=== PATIENT | female | born 1965 | race Caucasian/White ===

== ENCOUNTER → 2023-05-09 | Outpatient (CLI) | payer OTHER ==
[2023-05-09 18:12] LABS: BASOPHILS ABSOLUTE AUTO 0.01 K/mm3 (0.00-0.23); BASOPHILS PERCENT AUTO 0 % (0-2); EOSINOPHILS ABSOLUTE AUTO 0.15 K/mm3 (0.00-0.68); EOSINOPHILS PERCENT AUTO 3 % (0-6); Hematocrit 36.3 % (33.0-51.0); Hemoglobin 12.4 g/dL (11.5-16.0); IMMATURE GRAN ABSOLUTE AUTO 0.01 K/mm3 (0.00-0.10); IMMATURE GRAN PERCENT AUTO 0 % (0-1); LYMPHOCYTES ABSOLUTE AUTO 1.85 K/mm3 (0.84-5.20); LYMPHOCYTES PERCENT AUTO 38 % (21-46); MONOCYTES ABSOLUTE AUTO 0.58 K/mm3 (0.16-1.47); MONOCYTES PERCENT AUTO 12 % (4-13); Mean Corpuscular HGB 36.3 pg (26.0-34.0); Mean Corpuscular HGB Conc 34.2 g/dL (31.5-36.5); Mean Corpuscular Volume 106 fL (80-100); Mean Platelet Volume 11.1 fL (9.1-12.4); NEUTROPHILS ABSOLUTE AUTO 2.33 K/mm3 (1.96-9.15); NEUTROPHILS PERCENT AUTO 47 % (41-73); Platelet Count 146 K/mm3 (150-400); RDW Coefficient Variation 15.1 % (11.7-14.2); RDW Standard Deviation 59.2 fL (35.1-46.3); RETICULOCYTE ABSOLUTE 0.0769 M/mm3 (0.0200-0.1100); RETICULOCYTE COUNT PERCENT 2.25 % (0.50-2.50); Red Blood Cell Count 3.42 M/mm3 (3.80-5.20); White Blood Cell Count 4.93 K/mm3 (4.00-11.30)
[2023-05-09 18:57] LABS: Percent Saturation 82.7 % (15.0-50.0)
== END ==
LOC: LAB SHORT 14:00 → LAB 14:00
PROVIDERS: Internal Medicine Hematology & Oncology
DX: E83.119 Hemochromatosis, unspecified (principal); D59.9 Acquired hemolytic anemia, unspecified
CPT/HCPCS: 82728; 83540; 83550; 85025; 85045

== ENCOUNTER → 2023-06-29 | Outpatient (CLI) | payer OTHER ==
[2023-06-29 18:32] LABS: Albumin, Blood 2.6 g/dL (3.4-5.0); Albumin/Globulin Ratio 0.5 (0.8-1.8); Bilirubin, Direct 1.1 mg/dL (0.0-0.3); Bilirubin, Indirect 1.1 mg/dL (0.1-0.7); Bilirubin, Total 2.2 mg/dL (0.1-1.0); Bun/Creatinine Ratio 29.5 (12.0-20.0); Calcium, Blood 8.7 mg/dL (8.5-10.1); Creatinine, Blood 0.75 mg/dL (0.40-1.00); Globulin, Blood 4.8 g/dL (2.2-4.0); Potassium, Blood 3.9 mmol/L (3.5-5.5); Total Protein, Blood 7.4 g/dL (6.4-8.2)
== END ==
LOC: LAB 17:14 → LAB SHORT 17:14
PROVIDERS: Internal Medicine Hematology & Oncology
DX: D59.10 Autoimmune hemolytic anemia, unspecified (principal); D89.2 Hypergammaglobulinemia, unspecified; E80.6 Other disorders of bilirubin metabolism; E83.119 Hemochromatosis, unspecified
CPT/HCPCS: 80053; 80076; 82248; 84100

== ENCOUNTER → 2023-07-06 | Outpatient (CLI) | payer OTHER ==
[2023-07-06 18:31] LABS: IMMATURE RETIC FRACTION 18.5 % (2.3-16.0); RETIC HGB EQUIVALENT 39.9 pg (28.20-36.60); RETICULOCYTE ABSOLUTE 0.0718 M/mm3 (0.0200-0.1100); RETICULOCYTE COUNT PERCENT 2.05 % (0.50-2.50)
== END ==
LOC: LAB SHORT 16:48 → LAB 16:48
PROVIDERS: Internal Medicine Hematology & Oncology
DX: D59.10 Autoimmune hemolytic anemia, unspecified (principal)
CPT/HCPCS: 85045

== ENCOUNTER 2023-09-12 08:54 | Day surgery (SDC) | payer OTHER ==
[2023-09-12] VITALS (18 sets, daily range): BP systolic 107–139; BP diastolic 57–92
[~2023-09-12] VITALS: Ht 172.7 cm; Wt 107.3 kg
--- NOTE | 2023-09-12 09:40 | NUR ---
Ambulatory in Day Surgery. History, Chart, Medications and Allergies reviewed before start of procedure. Lungs clear T/O to Auscultation. Patient confirms NPO status and agrees with scheduled surgery. Pre-Op teaching done. Pt verbalizes understanding. Patient States Post-Procedure ride home has been arranged.
--- NOTE | 2023-09-12 10:06 | NUR ---
09/12/23 1006 Chantell Rinaldi HISTORY, CHART, MEDICATIONS AND ALLERGIES REVIEWED BEFORE START OF PROCEDURE. PATIENT CONFIRMS NPO STATUS AND AGREES WITH SCHEDULED PROCEDURE. 3-LEAD EKG REVIEWED WITH PHYSICIAN PRIOR TO START OF PROCEDURE. MONITOR INTACT WITH CONTINUOUS PULSE OXIMETRY,CAPNOGRAPHY, 3-LEAD EKG, INTERMITTENT BP. SUPPLEMENTAL O2 TO BE TITRATED THROUGHOUT PROCEDURE TO MAINTAIN O2 SATURATION ABOVE 90%. PATIENT DETERMINED TO BE ASA APPROPRIATE FOR PROPOFOL SEDATION PRIOR TO START OF PROCEDURE BY .
--- NOTE | 2023-09-12 11:18 | NUR ---
Discharge instructions reviewed with patient. Patient verbalizes understanding. Copy given to patient to take home. Patient States Post-Procedure ride home has been arranged. Discharged via wheelchair to private car for ride home.
== END 2023-09-12 11:18 | disposition home or self-care (01) ==
LOC: ORSCMMR 08:54 → ORD 10:00 → ORSCMMR 10:00
PROVIDERS: Internal Medicine Gastroenterology
PROC: 0DJD8ZZ Inspection of Lower Intestinal Tract, Via Natural or Artificial Opening Endoscopic (ICD-10-PCS; principal; 2023-09-12 10:00)
PROC: 0DJ08ZZ Inspection of Upper Intestinal Tract, Via Natural or Artificial Opening Endoscopic (ICD-10-PCS; principal; 2023-09-12 10:00)
DX: E83.118 Other hemochromatosis (principal); K74.69 Other cirrhosis of liver; Z12.11 Encounter for screening for malignant neoplasm of colon
CPT/HCPCS: J2704; J7120

== ENCOUNTER → 2023-10-05 | Outpatient (CLI) | payer OTHER ==
[2023-10-06 10:01] LABS: A/G RATIO 0.9 (1.2-2.2); ALKALINE PHOSPHATASE, S 222 IU/L (44-121); ALT (SGPT) 40 IU/L (0-32); AST (SGOT) 98 IU/L (0-40); BILIRUBIN, TOTAL 1.9 mg/dL (0.0-1.2); BUN 15 mg/dL (6-24); BUN/CREATININE RATIO 21 (9-23); CALCIUM, SERUM 8.1 mg/dL (8.7-10.2); CARBON DIOXIDE, TOTAL 21 mmol/L (20-29); CHLORIDE, SERUM 106 mmol/L (96-106); CREATININE, SERUM 0.73 mg/dL (0.57-1.00); GLOBULIN, TOTAL 3.4 g/dL (1.5-4.5); GLUCOSE, SERUM 105 mg/dL (70-99); PHOSPHORUS, SERUM 3.3 mg/dL (3.0-4.3); POTASSIUM, SERUM 3.5 mmol/L (3.5-5.2); PROTEIN, TOTAL, SERUM 6.3 g/dL (6.0-8.5); SODIUM, SERUM 137 mmol/L (134-144)
[2023-10-09 06:45] LABS: ALBUMIN 2.88 g/dL (3.75-5.01); ALPHA 1 GLOBULIN 0.22 g/dL (0.19-0.46); ALPHA 2 GLOBULIN 0.51 g/dL (0.48-1.05); TOTAL PROTEIN,SERUM 6.6 g/dL (6.3-8.2)
== END ==
LOC: LAB SHORT 14:09 → LAB 14:09
PROVIDERS: Internal Medicine Hematology & Oncology
DX: D59.10 Autoimmune hemolytic anemia, unspecified (principal)
CPT/HCPCS: 80053; 80069; 84100; 84155; 84165

== ENCOUNTER → 2023-10-26 | Outpatient (CLI) | payer OTHER ==
[2023-10-29 11:25] LABS: IMMATURE RETIC FRACTION 17.8 % (2.3-16.0); RETIC HGB EQUIVALENT 40.7 pg (28.20-36.60); RETICULOCYTE ABSOLUTE 0.1085 M/mm3 (0.0200-0.1100); RETICULOCYTE COUNT PERCENT 3.21 % (0.50-2.50)
== END ==
LOC: LAB 14:54 → LAB SHORT 14:54
PROVIDERS: Internal Medicine Hematology & Oncology
DX: D59.10 Autoimmune hemolytic anemia, unspecified (principal)
CPT/HCPCS: 85045

== ENCOUNTER 2024-01-12 13:16 | Observation (INO) | payer OTHER ==
[~2024-01-12] VITALS: Ht 172.7 cm; Wt 98.7 kg
[2024-01-12] MEDS ORDERED: Dextrose 50% 50 ML Syringe ONE (13:52)
[2024-01-12 14:06] LABS: BASOPHILS ABSOLUTE AUTO 0.03 K/mm3 (0.00-0.23); BASOPHILS PERCENT AUTO 0 % (0-2); EOSINOPHILS ABSOLUTE AUTO 0.17 K/mm3 (0.00-0.68); EOSINOPHILS PERCENT AUTO 2 % (0-6); Hematocrit 40.3 % (33.0-51.0); Hemoglobin 13.9 g/dL (11.5-16.0); IMMATURE GRAN ABSOLUTE AUTO 0.04 K/mm3 (0.00-0.10); IMMATURE GRAN PERCENT AUTO 1 % (0-1); LYMPHOCYTES ABSOLUTE AUTO 2.62 K/mm3 (0.84-5.20); LYMPHOCYTES PERCENT AUTO 33 % (21-46); MONOCYTES ABSOLUTE AUTO 1.02 K/mm3 (0.16-1.47); MONOCYTES PERCENT AUTO 13 % (4-13); Mean Corpuscular HGB 36.5 pg (26.0-34.0); Mean Corpuscular HGB Conc 34.5 g/dL (31.5-36.5); Mean Corpuscular Volume 106 fL (80-100); Mean Platelet Volume 10.6 fL (9.1-12.4); NEUTROPHILS ABSOLUTE AUTO 4.16 K/mm3 (1.96-9.15); NEUTROPHILS PERCENT AUTO 52 % (41-73); Platelet Count 147 K/mm3 (150-400); RDW Coefficient Variation 14.1 % (11.7-14.2); RDW Standard Deviation 54.9 fL (35.1-46.3); Red Blood Cell Count 3.81 M/mm3 (3.80-5.20); White Blood Cell Count 8.04 K/mm3 (4.00-11.30)
[2024-01-12] MEDS ORDERED: Metoprolol Tartrate 1 MG/ML 5 ML VIAL IV PRN (14:15)
[2024-01-12 14:36] LABS: Source, Urine Clean Catch
[2024-01-12 14:41] LABS: Appearance, Urine Clear (Clear); Bilirubin, Urine Neg (Neg); Blood, Urine Neg (Neg); Glucose Qualitative, Urine Neg (Neg); Ketones, Urine Neg (Neg); Leukocyte Esterase, Urine 1+ (Neg); Nitrite, Urine Neg (Neg); Protein, Urine Neg (Neg); Specific Gravity, Urine 1.005 (1.003-1.022); Urobilinogen, Urine NORM (Normal)
[2024-01-12 14:42] LABS: Color, Urine Pale Yellow (P-Yellow)
[2024-01-12 14:48] LABS: Bacteria Few /hpf; Red Blood Cells, Urine Not Seen /hpf (0-2); Squamous Epithelial Cells Few /hpf (Few)
[2024-01-12 14:50] LABS: Alanine Aminotransfer (ALT/SGP 61 U/L (12-78); Albumin, Blood 3.3 g/dL (3.4-5.0); Albumin/Globulin Ratio 0.7 (0.8-1.8); Alk Phos 216 U/L (50-136); Anion Gap 12 mmol/L (3-11); Aspartate Aminotrans (AST/SGOT 102 U/L (12-37); Bilirubin, Indirect 1.6 mg/dL (0.1-0.7); Bilirubin, Total 2.6 mg/dL (0.1-1.0); Blood Urea Nitrogen 14 mg/dL (8-24); Bun/Creatinine Ratio 20.7 (12.0-20.0); CO2, Blood 21 mmol/L (21-32); Calcium, Blood 8.9 mg/dL (8.5-10.1); Chloride, Blood 114 mmol/L (98-108); Creatinine, Blood 0.68 mg/dL (0.40-1.00); Globulin, Blood 4.6 g/dL (2.2-4.0); Glomerular Filtration Rate 100 (60-); Magnesium, Blood 1.8 mg/dL (1.6-2.4); Potassium, Blood 2.6 mmol/L (3.5-5.5); Sodium, Blood 144 mmol/L (136-145); Total Protein, Blood 7.9 g/dL (6.4-8.2)
[2024-01-12 14:52] LABS: U Amphetamine Screen Not Detected; U Barbituate Screen Not Detected; U Benzodiazapine Screen Not Detected; U Buprenorphine Screen Not Detected; U Cannabinoids Screen Not Detected; U Cocaine Screen Not Detected; U Methadone Screen Not Detected; U Methamphetamine Screen Not Detected; U Opiates Screen Not Detected; U Oxycodone Screen Not Detected; U Phencyclidine Screen Not Detected
[2024-01-12 14:58] LABS: PCO2 Venous 32.7 mmHg (38-42); pH Blood Venous 7.37 (7.34-7.37)
[2024-01-12 14:59] LABS: Base Excess Venous -6.4 mmol/L
[2024-01-12 15:06] LABS: Ethanol (Alcohol), Blood, Med <3 mg/dL; Glucose, Blood 24 mg/dL (70-99)
[2024-01-12] MEDS ORDERED: Potassium Chloride 40 MEQ in NS 250 ML IV ONE (15:10)
[2024-01-12] MEDS ORDERED: Magnesium Sulf 2 GM/Water 50ML 50 ML IV ONE (15:15)
[2024-01-12] MEDS ORDERED: NS 1,000 ML IV ONE (15:56)
[2024-01-12] MEDS ORDERED: D5W-1/2NS 1,000 ML IV SCH (16:20)
[2024-01-12] MEDS ORDERED: Ondansetron HCl 2 MG / ML 2ML Vial IV PRN (16:20)
[2024-01-12] MEDS ORDERED: Polyethylene Glycol 3350 17 gm PO PRN (16:20)
[2024-01-12 17:06] VITALS: BP 116/91
[2024-01-12] MEDS ORDERED: FURO40 PO (17:34)
[2024-01-12] MEDS ORDERED: Prinivil10 MG PO (17:35)
--- NOTE | 2024-01-12 18:51 | NUR ---
END OF SHIFT SUMMARY: PT WAS BROUGHT UP FROM THE ER @ 17:01 WITH HER PERSONAL BELONGINGS. SATTING >90% ON ROOM AIR. ON TELE SHOWING NORMAL SINUS RYTHM. BLOOD SUGAR READING DONE UPON ARRIVAL AND WAS 115. 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 HAS URGENCY & FREQUENCY TO GO TO THE BATHROOM SHE TOOK HER DIURETIC THIS MORNING. NOTIFIED FAMILY ABOUT THE CHANGE ON FLOORS. IS A&OX4 AND ACTIVE IN HER CARE. PT STATED SHE SEES HER DOCTOR OFTEN FOR HER RARE BLOOD DISORDER. SETTLED IN AND GOT SOME REST. WILL REPORT TO ONCOMING RN.
[2024-01-12 20:08] VITALS: BP 106/68
[2024-01-12] MEDS ORDERED: Dextrose 50% 50 ML Syringe IV ONE (20:24)
[2024-01-12 23:40] VITALS: BP 127/81
[2024-01-13 04:48] LABS: Albumin, Blood 2.7 g/dL (3.4-5.0); Anion Gap 7 mmol/L (3-11); Blood Urea Nitrogen 14 mg/dL (8-24); Bun/Creatinine Ratio 20.9 (12.0-20.0); CO2, Blood 26 mmol/L (21-32); Calcium, Blood 8.5 mg/dL (8.5-10.1); Chloride, Blood 114 mmol/L (98-108); Creatinine, Blood 0.67 mg/dL (0.40-1.00); Glomerular Filtration Rate 101 (60-); Glucose, Blood 101 mg/dL (70-99); Phosphorus, Blood 2.7 mg/dL (2.5-4.9); Potassium, Blood 3.5 mmol/L (3.5-5.5); Sodium, Blood 143 mmol/L (136-145)
[2024-01-13 05:27] VITALS: BP 119/69
--- NOTE | 2024-01-13 06:07 | NUR ---
SHIFT SUMMARY PATIENT ALERT AND ORIENTED x4. PATIENT PLEASANT AND COOPERATIVE WITH CARE. PATIENT HAD FAMILY AT BEDSIDE AND WAS RECALLING EVENTS LEADING TO ARRIVAL TO HOSPITAL. NEURO REMAINS INTACT DURING THE NIGHT. SON AT BEDSIDE DURING THE NIGHT. BP STABLE. PATIENT REMAINS IN SR ENTIRE SHIFT. ON RA WITH SPO2 >90%. PATIENT AMBULATING TO BEDSIDE COMMODE INDEPENDENTLY. GLUCOSE STABLE DURING THE NIGHT. FLUIDS INFUSING PER EMAR. NO OTHER CHANGES DURING THE NIGHT. WILL REPORT TO DAY SHIFT RN.
[2024-01-13] MEDS ORDERED: Potassium Chloride 20 MEQ TabCR PO ONE (07:40)
[2024-01-13 07:47] VITALS: BP 109/69
--- NOTE | 2024-01-13 09:49 | NUR ---
PATIENT ALERT AND ORIENTED X4. STATED SHE HAD DAUGHTER BRINGING IN KNEE BRACES FOR OA IN BILATERAL KNEE. PATIENT O2 REMAINED <90 ON RA. AMBULATES TO THE BEDSIDE COMMODE WHEN SHE NEEDS TO VOID. SON IS STILL AT PATIENTS BEDSIDE. ATE SOME SAUSAGE FOR BREAKFAST THIS MORNING. BLOOD SUGAR WAS 88 THIS MORNING AND ENCOURAGED TO EAT. DR. COOK CAME TO SEE PT THIS MORNING, TO CONTINUE TO MONITOR GLUCOSE THROUGHOUT THE DAY. SBP <100 AND DBP<60-80'S. PT REMAINED IN NSR IN HRR OF <80'S. DENIES CHEST PAIN OR PRESSURE.
[2024-01-13] MEDS ORDERED: Enoxaparin 40 MG/0.4 ML SYR SC SCH (11:00)
[2024-01-13 11:23] VITALS: BP 142/87
[2024-01-13 11:26] VITALS: BP 127/60
[2024-01-13 15:23] VITALS: BP 122/68
--- NOTE | 2024-01-13 18:32 | NUR ---
DISCHARGE SUMMARY PATIENT WAS ABLE TO AMBULATE WITH NO ISSUES IN HRR. SHE REMAINED IN NSR THROUGHOUT SHIFT. SP02 WAS >90% ON RA ALL DAY. BP WAS IN NORMAL RANGE OF SBP <110-130 AND DBP <70-80'S. FAMILY WAS WITH THE PATIENT ALL DAY. SHE HAD NO COMPLAINTS OF SOB, CP OR DIZZINESS THROUGHOUT SHIFT. GLUCOSE WAS MAINTAINED THROUGHOUT DAY AT AROUND 80-110. DOCTOR STATED THAT IF PATIENTS GLUCOSE REMAINED IN NORMAL LIMITS AFTER DINNER THAT SHE COULD BE DISCHARGED. D/C ORDER IN PLACE. DISCLOSED ALL DISCHARGE INSTRUCTION WITH PATIENT AND FAMILY AT BEDSIDE.
[2024-01-14 19:41] LABS: SERUM, C-PEPTIDE 3.9 ng/mL (0.5-3.3)
[2024-01-15 12:12] LABS: INSULIN FREE 14 uIU/mL (3-25); TOTAL INSULIN 23 uIU/mL (3-25)
== END 2024-01-13 18:26 | disposition home or self-care (01) ==
LOC: ER 13:16 → PCU 13:17
PROVIDERS: Student in an Organized Health Care Education/Training Program; ADMIT Internal Medicine
DX: I48.92 Unspecified atrial flutter (principal); E16.2 Hypoglycemia, unspecified; D69.41 Evans syndrome; K74.60 Unspecified cirrhosis of liver; E83.119 Hemochromatosis, unspecified; M17.0 Bilateral primary osteoarthritis of knee; E87.6 Hypokalemia; I10 Essential (primary) hypertension; G47.33 Obstructive sleep apnea (adult) (pediatric)
CPT/HCPCS: 36415; 71045; 80048; 80069; 80076; 81001; 82803; 82947; 83525; 83527; 83735; 83880; 84132; 84443; 84484; 84681; 85025; 93005; 93010; 93306; 96365; 96372; 96375; 99285-25; A9270; G0378; J1650; J3480; J7030; J7042; J7050

== ENCOUNTER → 2024-07-15 | Outpatient (CLI) | payer OTHER ==
[~2024-07-15] MED LIST: FURO40 PO; Prinivil10 MG PO
[2024-07-15 19:00] LABS: BASOPHILS ABSOLUTE AUTO 0.01 K/mm3 (0.00-0.23); BASOPHILS PERCENT AUTO 0 % (0-2); EOSINOPHILS ABSOLUTE AUTO 0.08 K/mm3 (0.00-0.68); EOSINOPHILS PERCENT AUTO 2 % (0-6); Hematocrit 37.1 % (33.0-51.0); Hemoglobin 12.6 g/dL (11.5-16.0); IMMATURE GRAN PERCENT AUTO 0 % (0-1); LYMPHOCYTES ABSOLUTE AUTO 1.08 K/mm3 (0.84-5.20); LYMPHOCYTES PERCENT AUTO 31 % (21-46); MONOCYTES ABSOLUTE AUTO 0.39 K/mm3 (0.16-1.47); MONOCYTES PERCENT AUTO 11 % (4-13); Mean Corpuscular HGB 36.4 pg (26.0-34.0); Mean Corpuscular Volume 107 fL (80-100); Mean Platelet Volume 10.6 fL (9.1-12.4); NEUTROPHILS ABSOLUTE AUTO 1.92 K/mm3 (1.96-9.15); NEUTROPHILS PERCENT AUTO 55 % (41-73); Platelet Count 103 K/mm3 (150-400); Red Blood Cell Count 3.46 M/mm3 (3.80-5.20); White Blood Cell Count 3.48 K/mm3 (4.00-11.30)
== END ==
LOC: LAB SHORT 17:29 → LAB 17:29
PROVIDERS: Internal Medicine Hematology & Oncology
DX: E83.119 Hemochromatosis, unspecified (principal)
CPT/HCPCS: 85025

== ENCOUNTER → 2024-10-22 | Outpatient (CLI) | payer OTHER ==
[2024-10-22 15:37] LABS: BASOPHILS ABSOLUTE AUTO 0.02 K/mm3 (0.00-0.23); BASOPHILS PERCENT AUTO 0 % (0-2); EOSINOPHILS ABSOLUTE AUTO 0.05 K/mm3 (0.00-0.68); EOSINOPHILS PERCENT AUTO 1 % (0-6); Hematocrit 42.9 % (33.0-51.0); Hemoglobin 15.2 g/dL (11.5-16.0); IMMATURE GRAN ABSOLUTE AUTO 0.01 K/mm3 (0.00-0.10); IMMATURE GRAN PERCENT AUTO 0 % (0-1); LYMPHOCYTES ABSOLUTE AUTO 1.49 K/mm3 (0.84-5.20); LYMPHOCYTES PERCENT AUTO 28 % (21-46); MONOCYTES ABSOLUTE AUTO 0.47 K/mm3 (0.16-1.47); MONOCYTES PERCENT AUTO 9 % (4-13); Mean Corpuscular HGB 37.9 pg (26.0-34.0); Mean Corpuscular HGB Conc 35.4 g/dL (31.5-36.5); Mean Corpuscular Volume 107 fL (80-100); Mean Platelet Volume 10.1 fL (9.1-12.4); NEUTROPHILS PERCENT AUTO 61 % (41-73); Platelet Count 160 K/mm3 (150-400); RDW Coefficient Variation 13.9 % (11.7-14.2); RDW Standard Deviation 55.4 fL (35.1-46.3); Red Blood Cell Count 4.01 M/mm3 (3.80-5.20); White Blood Cell Count 5.24 K/mm3 (4.00-11.30)
[2024-10-22 16:00] LABS: Percent Saturation 41.3 % (15.0-50.0)
== END | disposition home or self-care (01) ==
LOC: LAB 12:00 → LAB SHORT 12:00
PROVIDERS: Internal Medicine Hematology & Oncology
DX: E83.119 Hemochromatosis, unspecified (principal); D59.10 Autoimmune hemolytic anemia, unspecified
CPT/HCPCS: 82728; 83540; 83550; 85025

== ENCOUNTER → 2025-01-13 | Outpatient (CLI) | payer OTHER ==
[2025-01-13 18:55] LABS: BASOPHILS ABSOLUTE AUTO 0.01 K/mm3 (0.00-0.23); BASOPHILS PERCENT AUTO 0 % (0-2); EOSINOPHILS ABSOLUTE AUTO 0.12 K/mm3 (0.00-0.68); EOSINOPHILS PERCENT AUTO 3 % (0-6); Hematocrit 36.5 % (33.0-51.0); Hemoglobin 12.5 g/dL (11.5-16.0); IMMATURE GRAN ABSOLUTE AUTO 0.01 K/mm3 (0.00-0.10); IMMATURE GRAN PERCENT AUTO 0 % (0-1); LYMPHOCYTES PERCENT AUTO 41 % (21-46); MONOCYTES ABSOLUTE AUTO 0.38 K/mm3 (0.16-1.47); MONOCYTES PERCENT AUTO 11 % (4-13); Mean Corpuscular HGB 36.9 pg (26.0-34.0); Mean Corpuscular HGB Conc 34.2 g/dL (31.5-36.5); Mean Corpuscular Volume 108 fL (80-100); Mean Platelet Volume 10.2 fL (9.1-12.4); NEUTROPHILS PERCENT AUTO 44 % (41-73); Platelet Count 121 K/mm3 (150-400); RDW Coefficient Variation 13.6 % (11.7-14.2); RDW Standard Deviation 53.6 fL (35.1-46.3); Red Blood Cell Count 3.39 M/mm3 (3.80-5.20); White Blood Cell Count 3.62 K/mm3 (4.00-11.30)
[2025-01-13 19:45] LABS: Albumin, Blood 3.2 g/dL (3.4-5.0); Albumin/Globulin Ratio 0.9 (0.8-1.8); Bilirubin, Total 2.2 mg/dL (0.1-1.0); Calcium, Blood 8.5 mg/dL (8.5-10.1); Creatinine, Blood 0.56 mg/dL (0.40-1.00); Free Thyroxine 1.09 ng/dL (0.70-1.60); Globulin, Blood 3.4 g/dL (2.2-4.0); Percent Saturation 69.2 % (15.0-50.0); Phosphorus, Blood 3.2 mg/dL (2.5-4.9); Potassium, Blood 3.7 mmol/L (3.5-5.5); Thyroid Stimulating Hormone 2.29 uIU/mL (0.360-4.800); Thyroxine (T4) 6.5 ug/dL (4.8-13.9); Total Protein, Blood 6.6 g/dL (6.4-8.2)
== END | disposition home or self-care (01) ==
LOC: LAB SHORT 17:30 → LAB 17:30
PROVIDERS: Internal Medicine Hematology & Oncology
DX: D59.10 Autoimmune hemolytic anemia, unspecified (principal); E83.119 Hemochromatosis, unspecified; E03.9 Hypothyroidism, unspecified
CPT/HCPCS: 80053; 82728; 83540; 83550; 84100; 84436; 84439; 84443; 85025

== ENCOUNTER → 2025-08-13 | Outpatient (CLI) | payer OTHER ==
[2025-08-13 14:35] LABS: BASOPHILS ABSOLUTE AUTO 0.01 K/mm3 (0.00-0.23); BASOPHILS PERCENT AUTO 0 % (0-2); EOSINOPHILS ABSOLUTE AUTO 0.17 K/mm3 (0.00-0.68); EOSINOPHILS PERCENT AUTO 5 % (0-6); Hematocrit 33.3 % (33.0-51.0); Hemoglobin 11.2 g/dL (11.5-16.0); IMMATURE GRAN ABSOLUTE AUTO 0.00 K/mm3 (0.00-0.10); IMMATURE GRAN PERCENT AUTO 0 % (0-1); LYMPHOCYTES ABSOLUTE AUTO 1.55 K/mm3 (0.84-5.20); LYMPHOCYTES PERCENT AUTO 41 % (21-46); MONOCYTES ABSOLUTE AUTO 0.48 K/mm3 (0.16-1.47); MONOCYTES PERCENT AUTO 13 % (4-13); Mean Corpuscular HGB Conc 33.6 g/dL (31.5-36.5); Mean Corpuscular Volume 110 fL (80-100); NEUTROPHILS ABSOLUTE AUTO 1.54 K/mm3 (1.96-9.15); NEUTROPHILS PERCENT AUTO 41 % (41-73); NRBC ABSOLUTE 0.00 K/mm3 (0.00-0.02); NRBC Auto 0.0 /100 WBC (0.0-0.2); Platelet Count 129 K/mm3 (150-400); RDW Coefficient Variation 13.6 % (11.7-14.2); RDW Standard Deviation 54.9 fL (35.1-46.3)
[2025-08-13 14:56] LABS: Ferritin, Serum 291.0 ng/mL (8-252); Total Iron Binding Capacity 263.0 ug/dL (250-450)
== END ==
LOC: LAB SHORT 13:32 → LAB 13:32
PROVIDERS: Internal Medicine Hematology & Oncology
DX: E83.119 Hemochromatosis, unspecified (principal)
CPT/HCPCS: 82728; 83540; 83550; 85025